=== PATIENT | male | born 1995 | race Caucasian/White ===

== ENCOUNTER 2023-02-25 10:36 | Inpatient (IN) | payer MEDICAID ==
[~2023-02-25] VITALS: Ht 177.8 cm; Wt 122.8 kg
[2023-02-25 12:30] LABS: ALANINE AMINOTRANSFERASE 126 U/L (12-78); ALBUMIN 3.8 G/DL (3.4-5.0); ALBUMIN/GLOBULIN RATIO 1.2 (1.1-1.5); ALKALINE PHOSPHATASE 82 IU/L (46-116); ANION GAP 6 (8-16); ASPARTATE AMINO TRANSFERASE 73 U/L (10-37); BILIRUBIN,TOTAL 0.7 MG/DL (0.1-1.0); BLOOD UREA NITROGEN 14 MG/DL (7-18); BUN/CREATININE RATIO 15.9 (10.0-20.0); CALCIUM 8.9 MG/DL (8.5-10.1); CHLORIDE 97 MMOL/L (99-107); CREATININE 0.88 MG/DL (0.60-1.10); GLUCOSE 105 MG/DL (70-104); SODIUM 133 MMOL/L (135-145); TOTAL CARBON DIOXIDE 29.6 MMOL/L (24-32); TOTAL PROTEIN 6.9 G/DL (6.4-8.2); eGFR > 90 ML/MIN
[2023-02-25 12:32] LABS: BASOPHILS % (AUTO) 0.5 % (0-1); EOSINOPHILS # (AUTO) 0.1 X10'3 (0-0.9); EOSINOPHILS % (AUTO) 0.8 % (0-6); HEMATOCRIT 40.9 % (42.0-52.0); HEMOGLOBIN 14.5 g/dl (14.0-17.9); LYMPHOCYTES # (AUTO) 1.8 X10'3 (1.1-4.8); LYMPHOCYTES % (AUTO) 18.2 % (21-51); MEAN CORPUSCULAR HEMOGLOBIN 30.9 PG (27.0-31.0); MEAN CORPUSCULAR HGB CONC 35.4 g/dL (33.0-36.5); MEAN CORPUSCULAR VOLUME 87.3 FL (78-98); MEAN PLATELET VOLUME 9.1 FL (7.4-10.4); MONOCYTES # (AUTO) 1.5 X10'3 (0-0.9); MONOCYTES % (AUTO) 14.6 % (2-12); NEUTROPHILS # (AUTO) 6.6 X10'3 (1.8-7.7); NEUTROPHILS % (AUTO) 65.9 % (42-75); PLATELET COUNT 256 X10'3 (140-440); RED BLOOD COUNT 4.68 X10'6 (4.70-6.10); RED CELL DISTRIBUTION WIDTH 12.5 % (11.5-14.5)
[2023-02-25 12:38] LABS: POTASSIUM 2.5 MMOL/L (3.5-5.1)
[2023-02-25 12:39] LABS: ETHANOL < 0.010 GM/DL (0.0-0.010)
[2023-02-25] MEDS ORDERED: potassium Cl 20 mEq SR tablet PO STA (14:47)
[2023-02-25 15:33] LABS: CLARITY,URINE CLEAR (Clear); COLOR,URINE YELLOW (Yellow); GLUCOSE, URINE NEGATIVE (Neg); KETONES,URINE TRACE mg/dl (Neg); LEUKOCYTE ESTERASE ,URINE NEGATIVE (Neg); NITRITES, URINE NEGATIVE (Neg); OCCULT BLOOD,URINE NEGATIVE (Neg); PROTEIN,URINE NEGATIVE (Neg); UROBILINOGEN,URINE 0.2 E.U/dL (0.2-1.0)
[2023-02-25 15:35] LABS: URINE AMPHETAMINE SCREEN NEGATIVE (Neg); URINE BARBITUATE SCREEN NEGATIVE (Neg); URINE BENZODIAZEPINES SCREEN NEGATIVE (Neg); URINE CANNABINOID SCREEN POSITIVE (Neg); URINE COCAINE SCREEN NEGATIVE (Neg); URINE METHADONE SCREEN NEGATIVE (Neg); URINE OPIATE SCREEN NEGATIVE (Neg); URINE PHENCYCLIDINE SCREEN NEGATIVE (Neg)
[2023-02-25 15:39] LABS: UA COLLECTION TYPE STRAIGHT CATH
[2023-02-25 15:52] LABS: MAGNESIUM 2.2 MG/DL (1.5-2.4)
--- NOTE | 2023-02-25 16:35 | NUR ---
ADMITTING MD TO PT BEDSIDE WITH PT GRANDPARENTS PRESENT
[2023-02-25] MEDS ORDERED: NO HOME MEDS (16:58)
[2023-02-25] MEDS ORDERED: magnesium hydroxide 30ml (MOM) UD suspension PO PRN (17:55)
[2023-02-25] MEDS ORDERED: magnesium 2GM in 50ml NS 50 ML IV PRN (17:55)
[2023-02-25] MEDS ORDERED: OLANZapine **IM** 10 mg inj. IM ONE (17:55)
[2023-02-25] MEDS ORDERED: magnesium 4gm in 100ml NS 100 ML IV PRN (17:55)
[2023-02-25] MEDS ORDERED: potassium Cl 20mEq in NS 1,000 ML IV SCH (17:55)
[2023-02-25] MEDS ORDERED: ondansetron/PF 4mg/2ml inj IV PRN (17:55)
[2023-02-25] MEDS ORDERED: magnesium Cl slow-release 64mg tablet PO PRN (17:55)
[2023-02-25] MEDS ORDERED: ondansetron 4mg rapidly disintigrating tab PO PRN (17:55)
[2023-02-25] MEDS ORDERED: potassium Cl 40MEQ/1/2NS 520ml 520 ML IV PRN (17:55)
[2023-02-25] MEDS ORDERED: mag hydrox/Alum hydrox/simeth 30ml oral suspension PO PRN (17:55)
[2023-02-25] MEDS ORDERED: potassium Cl 20 mEq SR tablet PO PRN ×2 (17:55)
[2023-02-25] MEDS ORDERED: acetaminophen 325mg tablet PO PRN (17:55)
[2023-02-25] MEDS ORDERED: bisacodyl 10mg suppository rectal RC PRN (17:55)
[2023-02-25] MEDS: K and/or MAG REPLACEMENT MC SCH (20:00)
[2023-02-25] MEDS: docusate sod 100mg capsule PO SCH (20:00)
[2023-02-25 23:15] VITALS: BP 117/79
--- NOTE | 2023-02-26 01:50 | NUR ---
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
[2023-02-26 06:00] VITALS: BP 123/74
--- NOTE | 2023-02-26 06:15 | NUR ---
Patient in room PCU 3025. I have received report from Matthew HICKEY and had the opportunity to ask questions and assume patient care.
[2023-02-26 07:11] LABS: BASOPHILS # (AUTO) 0.1 X10'3 (0-0.2); BASOPHILS % (AUTO) 0.8 % (0-1); EOSINOPHILS # (AUTO) 0.2 X10'3 (0-0.9); EOSINOPHILS % (AUTO) 2.6 % (0-6); HEMATOCRIT 38.7 % (42.0-52.0); HEMOGLOBIN 13.8 g/dl (14.0-17.9); LYMPHOCYTES # (AUTO) 1.3 X10'3 (1.1-4.8); MEAN CORPUSCULAR HEMOGLOBIN 31.5 PG (27.0-31.0); MEAN CORPUSCULAR HGB CONC 35.7 g/dL (33.0-36.5); MEAN CORPUSCULAR VOLUME 88.4 FL (78-98); MEAN PLATELET VOLUME 8.8 FL (7.4-10.4); MONOCYTES % (AUTO) 13.1 % (2-12); NEUTROPHILS # (AUTO) 4.8 X10'3 (1.8-7.7); NEUTROPHILS % (AUTO) 65.5 % (42-75); PLATELET COUNT 228 X10'3 (140-440); RED BLOOD COUNT 4.37 X10'6 (4.70-6.10); RED CELL DISTRIBUTION WIDTH 12.3 % (11.5-14.5); WHITE BLOOD COUNT 7.3 X10'3 (4.5-11.0)
[2023-02-26 07:33] LABS: ALANINE AMINOTRANSFERASE 117 U/L (12-78); ALBUMIN 3.5 G/DL (3.4-5.0); ALBUMIN/GLOBULIN RATIO 1.3 (1.1-1.5); ALKALINE PHOSPHATASE 76 IU/L (46-116); ANION GAP 12 (8-16); ASPARTATE AMINO TRANSFERASE 66 U/L (10-37); BILIRUBIN,TOTAL 0.9 MG/DL (0.1-1.0); BLOOD UREA NITROGEN 10 MG/DL (7-18); BUN/CREATININE RATIO 11.8 (10.0-20.0); CALCIUM 8.7 MG/DL (8.5-10.1); CHLORIDE 99 MMOL/L (99-107); CREATININE 0.85 MG/DL (0.60-1.10); GLUCOSE 102 MG/DL (70-104); MAGNESIUM 2.1 MG/DL (1.5-2.4); POTASSIUM 3.4 MMOL/L (3.5-5.1); SODIUM 136 MMOL/L (135-145); TOTAL CARBON DIOXIDE 24.7 MMOL/L (24-32); TOTAL PROTEIN 6.3 G/DL (6.4-8.2); eGFR > 90 ML/MIN
[2023-02-26] MEDS: K and/or MAG REPLACEMENT MC SCH (08:00)
[2023-02-26] MEDS: docusate sod 100mg capsule PO SCH (08:58)
[2023-02-26 11:00] VITALS: BP 109/63
[2023-02-26] MEDS ORDERED: LORazepam 2 mg/ml vial IV ONE (11:05)
[2023-02-26] MEDS ORDERED: OLANZapine 2.5MG tablet PO ONE (11:05)
[2023-02-26] MEDS ORDERED: LORazepam 2 mg/ml vial ONE (11:15)
[2023-02-26 15:00] VITALS: BP 151/73
--- NOTE | 2023-02-26 18:00 | NUR ---
PAGER ID: [phone] MESSAGE: [id number]- Lida Jim - Patient is awake, mom called to see if he is discharging. Are you still wanting to discharge him today? Pls advise? LANI Stark [id number]
[2023-02-26] MEDS ORDERED: OLAN5TAB3 PO (18:12)
--- NOTE | 2023-02-26 18:15 | NUR ---
Dr. Vo called back and stated that he is discharging patient today. I called patient family for brain picker.
--- NOTE | 2023-02-26 19:30 | NUR ---
Patient IV was removed by RN. Patient was helped getting dressed. Discharge papers were explained to patient and family. Patient was appropriate and alert for discharge. Patient was wheeled downstairs and helped into private vehicle.
[2023-02-27 13:51] LABS: HBSAG SCREEN Negative (Negative); HEP A AB, IGM Negative (Negative); HEPATITIS C VIRUS ANTIBODY Non Reactive (Non Reactive)
== END 2023-02-26 20:00 | disposition home or self-care (01) | DRG 52 ==
LOC: ER 10:37 → ED HOLD 18:03 → PCU 3S 23:05
PROVIDERS: ADMIT Family Medicine; ATTEND Family Medicine
DX: G93.41 Metabolic encephalopathy (principal); E87.1 Hypo-osmolality and hyponatremia; E87.6 Hypokalemia; R13.10 Dysphagia, unspecified; F25.9 Schizoaffective disorder, unspecified; R74.8 Abnormal levels of other serum enzymes; F31.9 Bipolar disorder, unspecified; Z56.0 Unemployment, unspecified; Z88.2 Allergy status to sulfonamides; Z90.49 Acquired absence of other specified parts of digestive tract; Z79.899 Other long term (current) drug therapy
CPT/HCPCS: 36415; 70450; 70551; 76700; 80053; 80074; 80305; 80320; 81003; 83735; 85025; 87081; 93005; 97161; 97530; 99285; G0378; J2060; J3480; J3490